=== PATIENT | female | born 1980 | race Caucasian/White ===

== ENCOUNTER 2021-11-01 12:53 | Observation (INO) ==
[2021-11-01] MEDS ORDERED: *HR* Propofol 200 MG/20 ML VIAL IVP ONE (13:09)
[2021-11-01] MEDS ORDERED: *HR* Midazolam HCl 2 MG/2 ML VIAL ONE (13:09)
[2021-11-01] MEDS ORDERED: *HR* FentaNYL (PF) 100 MCG/2 ML VIAL ONE (13:10)
[2021-11-01] MEDS ORDERED: Lidocaine -MPF 2% 5 ML VIAL ONE (13:11)
[2021-11-01] MEDS ORDERED: *HR* Rocuronium Bromide 50 MG/5 ML VIAL ONE (13:11)
[2021-11-01] MEDS ORDERED: Ondansetron 4 MG/2 ML VIAL ONE (13:11)
[2021-11-01] MEDS ORDERED: Lidocaine -MPF 4% 5 ML AMPUL ONE (13:11)
[2021-11-01] MEDS ORDERED: cefOXitin 2,000 MG in Water for inj. (sterile) 10 ML IVP ONE ×2 (13:12→15:00)
[2021-11-01] MEDS ORDERED: Ringers Solution, Lactated 1,000 ML IVC SCH (13:15)
[2021-11-01] MEDS ORDERED: *HR* HYDROmorphone PF 0.5 MG/0.5 ML SYRINGE IVP PRN (13:56)
[2021-11-01] MEDS ORDERED: Promethazine 6.25 MG in Water for inj. (sterile) 20 ML IVPB PRN (13:56)
[2021-11-01] MEDS ORDERED: *HR* OxyCODONE Immed Rel 5 MG TABLET PO PRN (13:56)
[2021-11-01] MEDS ORDERED: Ondansetron 4 MG/2 ML VIAL IVP PRN ×2 (13:56→19:43)
[2021-11-01] MEDS: Scopolamine Patch 1.5 MG PATCH.TD72 TD ONE ×2 (14:07→14:08)
[2021-11-01] MEDS ORDERED: *HR* HYDROMORPHONE 2 MG/ML VIAL ONE ×2 (14:56→15:25)
[2021-11-01] MEDS ORDERED: Acetaminophen IV 1,000 MG/100 ML BAG IVPB ONE (15:00)
[2021-11-01] MEDS ORDERED: Sugammadex Sodium 200 MG/2 ML VIAL IV ONE (15:16)
[2021-11-01] MEDS ORDERED: Metoclopramide 10 MG/2 ML VIAL IVP PRN (17:51)
[2021-11-01] MEDS: *HR* OxyCODONE/APAP 5/325 TABLET PO PRN (21:15)
[2021-11-01] MEDS: 0.9 % Sodium Chloride 1,000 ML IVC SCH (21:15)
[2021-11-02] MEDS: 0.9 % Sodium Chloride 1,000 ML IVC SCH (08:19)
[2021-11-02] MEDS: *HR* OxyCODONE/APAP 5/325 TABLET PO PRN (08:29)
[2021-11-02 11:51] VITALS: BP 145/80; PULSE 69; TEMP 98.5; O2SAT 100
== END 2021-11-02 12:48 | disposition home or self-care (01) ==
LOC: 3BNU 12:53 → SAMDAY 12:53
PROVIDERS: ADMIT Surgery; ATTEND Surgery